=== PATIENT | female | born 1935 | race Caucasian/White ===

== ENCOUNTER 2016-08-24 12:02 | Day surgery (SDC) | payer MEDICARE, OTHER ==
[~2016-08-24] VITALS: Ht 157.5 cm; Wt 70.0 kg
[~2016-08-24 12:02] MED LIST: ALBU2.5V4 INHALATION; AMLO-39 PO; ASPI-973 PO; ATRV10T PO; BENZ100C8 PO; CARV6.252 PO; FUR20 PO; GABA-502 PO; IPRA3AMP IH; LEVA15HF5 IH; LOSA100T29 PO; Lactated Ringer's 1,000 ML IV ONE; MIRA25TA PO; OMEG1CAP2 PO; SITA100T12 PO; TAMS0.4C98 PO; TRAZ150T72 PO
[2016-08-24] MEDS ORDERED: Propofol 10,000 mCg/mL 20 mL Inj ONE (12:03)
[2016-08-24 13:31] VITALS: BP 148/75; PULSE 84; RESP 17; O2SAT 96
[2016-08-24] MEDS ORDERED: UBID100C25 PO (13:44)
[2016-08-24] MEDS ORDERED: GLUC-180 PO (13:44)
[2016-08-24] MEDS ORDERED: CHOL100043 PO (13:44)
[2016-08-24] MEDS ORDERED: FOLI0.8C2 PO (13:44)
[2016-08-24] MEDS ORDERED: MECO10002 SL (13:44)
[2016-08-24] MEDS ORDERED: ASPI-973 PO (13:44)
[2016-08-24] MEDS ORDERED: LORA5SOL82 PO (13:44)
[2016-08-24] MEDS ORDERED: Lactated Ringer's 1,000 ML IV SCH (13:58)
[2016-08-24] MEDS ORDERED: MetoCLOpramide 5 mg/mL 2 mL Inj IVPUSH PRN (14:00)
[2016-08-24] MEDS ORDERED: Ondansetron 2 mg/mL 2 mL Inj IVPUSH PRN (14:00)
[2016-08-24 14:33] VITALS: BP 141/74; PULSE 78; RESP 16; O2SAT 96
[2016-08-24 14:43] VITALS: BP 153/95; PULSE 79; RESP 16; O2SAT 95
[2016-08-24 14:53] VITALS: BP 170/74; PULSE 76; RESP 16; O2SAT 96
--- NOTE | 2016-08-24 17:29 | PCM.ANEP1 ---
Post Anesthesia PACU Phase 1 Assessment Vital Signs Vital Signs Date Time Temp Pulse Resp B/P Pulse Ox O2 Delivery O2 Flow Rate FiO2 08/24/16 14:53 76 16 170/74 96 Room Air 08/24/16 14:43 79 16 153/95 95 Room Air 08/24/16 14:33 78 16 141/74 96 Room Air 08/24/16 13:31 84 17 148/75 96 Room Air Anesthetic Administered: MAC Level of Alertness: Awake, talking PHIPPS's with Equal Strength: Yes Pain: No Nausea or Vomiting: No CV Function and Hydration: No Airway Device: none Oxygen Delivery: Room Air Lungs: Normal Air Movement Dermatome Level: Full Sensation PACU Phase 2 Assessment Complications: No Follow up Care: N/A Patient Instructions Provided: N/A Dimitry Kathleen MD August 24, 2016 17:29
--- NOTE | 2016-08-24 17:29 | PCM.HPANE ---
Patient Data Surgeon Admitting Provider: Attending Provider:Stephanie Pete MD Primary Care Physician:Radha Vanegas PA-C Other Provider:Rubin Can Anesthesia Reason for Visit Diarrhea Ht/WT & BMI Height (Feet): 5 Height (Inches): 2 Weight (Kilograms): 70 Body Mass Index 28.00 Allergies Coded Allergies: Xkewvpj-Chn-Iwf Reductase Inhibitor (Verified Allergy, Unknown, 08/23/16) citalopram (Verified Allergy, Unknown, 08/23/16) niacin (Verified Allergy, Unknown, 08/23/16) phenobarbital (Verified Allergy, Unknown, 08/23/16) ropinirole (Verified Allergy, Unknown, 08/23/16) Past Anesthesia History Anesthesia History: Denies:: Abnormal Airway, Anesthesia Reactions, Difficult Intubation, Fam Anesthesia Reaction, Fam Malignant Hypertherm, Malignant Hyperthermia Diabetes History Hx Diabetes?: Yes Current Bedside Blood Glucose: 112 MRSA MRSA: No Medications Reported Medications Mecobalamin (B-12)1,000 Mcg Tab.rapdis2,000 Mcg SL 08/24/16 Folic Acid (Fa-8)0.8 Mg Capsule0.8 Mg PO 08/24/16 Cholecalciferol (Vitamin D3) (Vitamin D)1,000 Unit Tablet2,000 Unit PO DAILY #1 BOTTLE Ref 0 08/24/16 Glucosamine/MSM/Chondroitin A (Glucosamine Chondroit MSM Tab)1 Each Tablet1 Each PO 08/24/16 Ubidecarenone (Co Q-10)100 Mg Gnfasom763 Mg PO 08/24/16 Loratadine 5 Mg/5 Ml (5 Ml) Xoihpuqv42 Mg PO 08/24/16 Aspirin 81 Mg Wwqsov61 Mg PO DAILY Ref 0 08/24/16 Levalbuterol Tartrate (Xopenex Hfa)15 Gm Hfa.aer.ad1 Puff IH Q4 PRN For Shortness of Breath #1 INH 08/23/16 Tamsulosin (Flomax)0.4 Mg Capsule0.4 Mg PO DAILY Ref 0 08/23/16 Amlodipine (Norvasc)5 Mg Tablet5 Mg PO DAILY Ref 0 08/23/16 Mirabegron ER (Myrbetriq)25 Mg Dmsfzz28 Mg PO DAILY 08/23/16 [place]-3 Acid Ethyl Esters (Lovaza)1 Gm Capsule1 Gm PO DAILY #30 CAPSULE Ref 0 08/23/16 Losartan Potassium 100 Mg Keitfm212 Mg PO 08/23/16 Atorvastatin (Lipitor)10 Mg Tab10 Mg PO DAILY Ref 0 08/23/16 Sitagliptin Phos (Januvia)100 Mg Nlyurd260 Mg PO DAILY Ref 0 08/23/16 Ipratropium/Albuterol Sulfate (Iprat-Albut 0.5-3(2.5) mg/3 mL Inhalant Soln)3 Ml Ampul.neb3 Ml IH Q6 Ref 0 08/23/16 Gabapentin 300 Mg Mdrgnjx017 Mg PO TID Ref 0 08/23/16 Furosemide 20 Mg Tab20 Mg PO DAILY 30 Days Ref 0 08/23/16 Carvedilol 6.25 Mg Tablet6.25 Mg PO BID Ref 0 08/23/16 Benzonatate 100 Mg Xonujax348 Mg PO 08/23/16 Albuterol Neb Soln 2.5 Mg/3 Ml Vial.neb2.5 Mg INHALATION Q4H PRN For Shortness of Breath Ref 0 08/23/16 Discontinued Reported Medications Trazodone 150 Mg Ueaodo995 Mg PO HS Ref 0 08/23/16 Aspirin 81 Mg Egowri40 Mg PO DAILY Ref 0 08/23/16 History History of ENT Problems?: No HEENT History: Denies:: Abnormal Airway Cataracts Difficult Intubation Dysphagia Glaucoma Hearing Problem (slight [place]) Sinus Problem TMJ Denture Type: None Teeth Condition: Within Normal Limits Hx of Heart Problems?: Yes Cardiovascular History: Denies:: AICD Abdominal Aortic Aneurism Atrial Fibrillation Cardiac Surgery Chest Pain Congestive Heart Failure Coronary Artery Disease Edema Heart Murmur Hypertension Irregular Heartbeat Pacemaker Peripheral Vascular Rheumatic Fever Thrombophlebitis Valvular Heart Disease Hx of Respiratory Problem?: Yes Respiratory History: Positive for:: Asthma COPD Denies:: Chest Surgery Cough Dyspnea Emphysema Hemoptysis Oxygen Administration Pneumonia Pulmonary Embolism Tuberculosis Use of C-PAP Machine Use of Inhalers / NEBS Other Resp Pertinent History: trachymalesia Hx Neurologic Problems?: No Neurological History: Positive for:: CVA (some left hand weakness) Denies:: Alzheimer's Disease Dementia Dizziness Headaches Multiple Sclerosis Parkinson's Disease Peripheral Neuropathy Seizures TIA Hx of GI Problems?: Yes Gastrointestinal History: Denies:: Cirrhosis Diverticulitis Gall Bladder Disease Gastroesphageal Reflux Gastrointestinal Bleeding Heartburn Hepatitis Hiatal Hernia Liver Disease Rectal Bleeding Other GI Pertinent History: DM 2 Hx of Problems?: No Genitourinary History: Denies:: HX of Hemodialysis Kidney Stones Urinary Tract Infection HX of Peritoneal Dialysis: No Female Hx: Denies:: Currently Endometriosis Pelvic Inflammatory Problems with Breasts? Skin History: Denies:: History Skin Disorders? Pressure Ulcers Hx Musculoskeletal Problems?: No Musculoskeletal History: Denies:: Back Injury Degenerative Joint Fibromyalgia Joint Replacement Musculoskeletal Trauma Myasthenia Gravis Osteoarthritis Rheumatoid Arthritis Systemic Lupus Psycho Social History: Denies:: Anxiety Bipolar Disorder Hx Depression Suicide Attempt Hx Surgeries?: Yes (tonsil, hyster, colon cancer) Hx Any Other Health Problems?: Yes Hx Diabetes: YesBedside Blood Glucose: 112 Hx Alcohol Use: No Stop/Bang Treated for Sleep Apnea?: No Do You Have a CPAP Machine?: No S-Snoring: Do You Snore Loudly: No T-Tired: feel tired, fatigued: Yes O-Obsered: Observed not breath: No P-Blood Pressure: treated: Yes B- Body Mass Index > 35 kg/m2: No A- Age over 50: Yes N- Neck Large Circumference: No G- Gender Male: No LISA Total Score: 3 Risk Assessment Category Category 1A: Patient has history of documented sleep apnea, and HAS NOT received any narcotic, sedative or anesthesia administration during this stay. Category 1B: Patient has history of documented sleep apnea, and HAS received any narcotic , sedative or anesthesia administration during this stay Category 2: Patient has SUSPECTED Obstructive Sleep Apnea, and HAS received any narcotic , sedative or anesthesia administration during this stay. Category 3: Patient has SUSPECTED Obstructive Sleep Apnea and HAS NOT received narcotic, sedative or anesthesia administration during this stay. Category 4: Outpatient in Procedural Areas with known sleep apnea or who screen positive for High Risk via the STOP/BANG questionnaire. Exam Exam Vital Signs Vital Signs Date Time Temp Pulse Resp B/P Pulse Ox O2 Delivery O2 Flow Rate FiO2 08/24/16 13:31 84 17 148/75 96 Room Air General Appearance: Alert, Oriented X3, Cooperative, No Acute Distress HEENT/AIRWAY: MP 2, Neck Movement (FROM), Mouth Opening (3 FBMO) Lungs: Normal Air Movement Heart: Regular Rate/Rhythm Meds/Labs/Diagnostics Bedside Blood Glucose: 112 Plan Impression Patient chart reviewed, patient interviewed and anesthestic plan with risks, benefits, and alternatives discussed, and informed consent obtained. NPO per Anesth. Guidelines: Yes ASA Physical Status: ASA3 Severe Disease (tracheomalacia) Anesthetic Plan: MAC Bene/Risks/Altern/Consents: Yes HP Complete Prior to Induction: Yes Dimitry Kathleen MD August 24, 2016 13:57
--- NOTE | 2016-08-25 10:45 | ENDO ---
[address] [address] ENDOSCOPY PROCEDURE PATIENT: RUDOLPH DAVILA : 1935 MR#: [id number] ADMIT: 08/24/2016 JOB ID: [id number] DATE: 08/24/2016 PROCEDURE: Colonoscopy. INDICATION: Diarrhea. The patient has a history of colon cancer for which she has undergone a partial colectomy. The patient's ASA classification, Mallampati score and medications as per Dr. Dimitry Kathleen's anesthesia report. INSTRUMENT USED: PCF H 180 AL. PREPARATION QUALITY: Was fair. PROCEDURE DETAILS: After informed consent was obtained, the patient was brought into the GI suite, where she was placed on oxygen via nasal cannula and monitored with continuous pulse oximeter, telemetry and blood pressure monitoring. A time-out was performed. Then, she was placed in a left lateral decubitus position and the medications were administered for sedation. Digital rectal examination was performed, which was unremarkable. The colonoscope was then inserted into the rectum and advanced under direct visualization to the cecum, which was identified by the presence of the ileocecal valve and appendiceal orifice. Once the cecum was reached, the colonoscope was withdrawn back into the rectum as the mucosa and lumen were examined. In the rectum, retroflexion was performed. Following retroflexion, remaining air in the rectum was suctioned, and the procedure was completed. FINDINGS: 1. In the cecum, there were two sutures seen. I suspect this likely the site of her anastomosis. The anastomosis was not obvious on inspection. The remainder of the colon was otherwise unremarkable. Multiple random biopsies were obtained throughout the colon. IMPRESSION: Suture material in the sigmoid colon consistent with patient's history of partial colectomy for colon cancer. Otherwise normal examination. RECOMMENDATIONS: 1. Await biopsy results. 2. Followup in GI clinic. COMPLICATIONS: None. ESTIMATED BLOOD LOSS: Less than 5 mL.
--- NOTE | 2016-08-29 15:03 | PATH ---
SURGICAL PATHOLOGY Attending Physician:Jose Carlos Manjarrez CASE STATUS: Signed Out PATIENT NAME: RUDOLPH DAVILA PID: [id number] : 1935 DATE COLLECTED:08/24/2016 00:00 SPECIMEN: Colon, Biopsy CLINICAL HISTORY: 1. RANDOM COLON BX FINAL DIAGNOSIS: Random Colon, Biopsy: LYMPHOCYTIC COLITIS Negative for granulomas, dysplasia and malignancy. ICD10: K52.89 GROSS DESCRIPTION: The specimen is received in one formalin filled container labeled with the patient's name, sublabeled "random colon" and consists of multiple portions of tissue which aggregate to 0.6 x 0.6 x 0.3 CM. The specimen is entirely submitted in one cassette. 08/25/2016 DAC MICRO DESCRIPTION: A trichrome stain highlights a normal subepithelial collagen layer. A control stain shows appropriate reactivity. ICD-9 CODES: CPT CODES: 1: 28264, 65236 Electronically Signed Out Analia Pereira MD [facility] Pathology [facility] [address], [place] [address] Technical component performed at [employer], [facility] [address], [place], [address]
== END 2016-08-24 23:59 | disposition home or self-care (01) ==
LOC: END 12:02
PROVIDERS: ATTEND Internal Medicine Gastroenterology
DX: K52.832 Lymphocytic colitis (principal); Z85.038 Personal history of other malignant neoplasm of large intestine; J44.9 Chronic obstructive pulmonary disease, unspecified; Z99.81 Dependence on supplemental oxygen; I25.10 Atherosclerotic heart disease of native coronary artery without angina pectoris; E11.9 Type 2 diabetes mellitus without complications; Z86.73 Personal history of transient ischemic attack (TIA), and cerebral infarction without residual deficits; Z87.440 Personal history of urinary (tract) infections; Z79.82 Long term (current) use of aspirin; Z79.84 Long term (current) use of oral hypoglycemic drugs; Z95.5 Presence of coronary angioplasty implant and graft; Z90.49 Acquired absence of other specified parts of digestive tract
CPT/HCPCS: 45380; 88305; 88313; J7120